=== PATIENT | female | born 1995 | race Caucasian/White ===

== ENCOUNTER 2017-11-18 08:18 | Emergency (ER) ==
[2017-11-18 08:23] VITALS: BP 127/85; TEMP 96.2; BMI 22.3
--- NOTE | 2017-11-18 08:36 | ED.PDOC ---
General ED Provider: Dr. YAQUELIN SCHMIDT Chief Complaint: Tooth Problem Stated Complaint: dental pain Time Seen by Physician: 08:19 (pt seen at ALL TIMES WITH HER NURSE [facility]) Mode of Arrival: Walk-In Information Source: Patient Exam Limitations: No limitations Primary Care Provider: [facility] Nursing and Triage Documentation Reviewed and Agree: Yes Reviewed sepsis parameters & appropriate labs ordered?: Yes System Inflammatory Response Syndrome: Not Applicable Sepsis Protocol: For patient's 13 years and over: Temp is 96.8 and below OR 101 and greater Pulse >90 BPM Resp >20/minute Acutely Altered Mental Status Are patient's symptoms suggestive of a new infection, such as: -Pneumonia -Skin, Soft Tissue -Endocarditis -UTI -Bone, Joint Infection -Implantable Device -Acute Abdominal Infection -Wound Infection -Meningitis -Blood Stream Catheter Infection -Unknown System Inflammatory Response Syndrome: Not Applicable EENT Complaint Exam - Dental/Oral Complaint/Exam Mechanism of Injury: No known trauma Onset/Duration: 1 WEEK Symptoms Are: Still present Timing: Intermittent Initial Severity: Moderate Current Severity: Moderate Character: Reports: Aching, Throbbing Aggravating: Reports: Heat, Cold, Chewing Alleviating: Reports: None Associated Signs and Symptoms: Denies: Swelling, Discharge, Fever, Foul odor, Foul taste in mouth Related History: Reports: Similar episode Cardiac Risk Factors: Reports: None Dental/Oral Surgical History: Reports: None Tooth Findings: Present: Gross caries Cervical Lymphadenopathy Present: No Facial Swelling Present: No Bleeding Present: No Septal Hematoma: No Foreign Body Present: No Dysphagia Present: No Drooling Present: No Asymmetrical Tonsillar Swelling Present: No Uvula Midline: No Raisa-tonsillar Fluctuence: No Trismus Present: No Palatal Petechiae Present: No Scarlatinaform Rash Present: No Teeth Picture: 1 - DECAY Differential Diagnoses: Dental Caries Review of Systems - Review Of Systems Constitutional: Reports: No symptoms Eyes: Reports: No symptoms Ears, Nose, Mouth, Throat: Reports: No symptoms Respiratory: Reports: No symptoms Cardiac: Reports: No symptoms GI: Reports: No symptoms : Reports: No symptoms Musculoskeletal: Reports: No symptoms Skin: Reports: No symptoms Neurological: Reports: No symptoms Endocrine: Reports: No symptoms Hematologic/Lymphatic: Reports: No symptoms All Other Systems: Reviewed and Negative Past Medical History - Past Medical History Previously Healthy: Yes Endocrine: Reports: None Cardiovascular: Reports: None Respiratory: Reports: None Hematological: Reports: None Gastrointestinal: Reports: None Genitourinary: Reports: None Neuro/Psych: Reports: None Musculoskeletal: Reports: None Cancer: Reports: None Last Menstrual Period: NOW Other Pertinent Past Medical History: parotitis 12/21/15 - Surgical History General Surgical History: Reports: Tonsillectomy, Adenoidectomy - Family History Family History: Reports: Unknown - Social History Smoking Status: Current every day smoker, Light tobacco smoker Hx Substance Use: No Alcohol Screening: None - Immunizations Tetanus Shot up to Date: Yes Physical Exam - Physical Exam Appearance: Well-appearing, No pain distress, Well-nourished Eyes: LYUDMILA, EOMI, Conjunctiva clear ENT: Ears normal, Nose normal, Oropharynx normal Respiratory: Airway patent, Breath sounds clear, Breath sounds equal, Respirations nonlabored Cardiovascular: RRR, Pulses normal, No rub, No murmur GI/: Soft, Nontender, No masses, Bowel sounds normal, No Organomegaly Musculoskeletal: Normal strength, ROM intact, No edema, No calf tenderness Skin: Warm, Dry, Normal color Neurological: Sensation intact, Motor intact, Reflexes intact, Cranial nerves intact, Alert, Oriented Psychiatric: Affect appropriate, Mood appropriate Critical Care Note - Critical Care Note Total Time (mins): 0 Course - Course Vital Signs: Temp Pulse Resp BP Pulse Ox 11/18/17 08:19 96.2 F L 100 H 16 127/85 99 Departure - Departure Time of Disposition: 08:35 Disposition: HOME SELF-CARE Discharge Problem: Toothache Instructions: Toothache (ED) Condition: Good Pt referred to PMD for follow-up: Yes IPMP verified?: No Additional Instructions: Please call your Family Physician as soon as possible to schedule a follow-up appointment. Prescriptions: Hydrocodone/Acetaminophen [[place] 5-325 Tablet] 1 each PO Q6HR PRN #12 tablet PRN Reason: PAIN Amoxicillin 500 mg PO Q8HR #21 tablet Allergies/Adverse Reactions: Allergies No Known Allergies Allergy (Verified 11/18/17 08:19) Home Medications: Ambulatory Orders Amoxicillin 500 mg PO Q8HR #21 tablet 11/18/17 Hydrocodone/Acetaminophen [[place] 5-325 Tablet] 1 each PO Q6HR PRN #12 tablet 01/31 Disposition Discussed With: Patient
== END 2017-11-18 08:50 | disposition home or self-care (01) ==
LOC: ED 08:18
DX: K08.89 Other specified disorders of teeth and supporting structures (principal); K02.7 Dental root caries; F17.210 Nicotine dependence, cigarettes, uncomplicated
CPT/HCPCS: 99281

== ENCOUNTER 2019-02-24 22:54 | Emergency (ER) | payer OTHER ==
[2019-02-24 23:05] VITALS: BP 116/87; TEMP 98.5; BMI 20.6
[2019-02-24] MEDS ORDERED: LACTATED RINGERS 1,000 ML IV STA (23:25)
[2019-02-24] MEDS ORDERED: LOMOTIL PO STA (23:29)
[2019-02-24] MEDS ORDERED: ZOFRAN 4 MG/2 ML IVP STA (23:29)
--- NOTE | 2019-02-24 23:32 | ED.PDOC ---
General ED Provider: Dr. FIORELLA KELLY Chief Complaint: Diarrhea Stated Complaint: 3 day history of Nausea and Diarrhea. Has had 22 loose stools today but not blood. Mild cramping also reproted. Time Seen by Physician: 23:30 Mode of Arrival: Walk-In Information Source: Patient Primary Care Provider: PARVIZ LIMON Nursing and Triage Documentation Reviewed and Agree: Yes Does patient meet sepsis criteria?: No System Inflammatory Response Syndrome: Not Applicable Sepsis Protocol: For patient's 13 years and over: Temp is 96.8 and below OR 101 and greater Pulse >90 BPM Resp >20/minute Acutely Altered Mental Status Are patient's symptoms suggestive of a new infection, such as: -Pneumonia -Skin, Soft Tissue -Endocarditis -UTI -Bone, Joint Infection -Implantable Device -Acute Abdominal Infection -Wound Infection -Meningitis -Blood Stream Catheter Infection -Unknown GI Complaint Exam - Vomiting/Diarrhea Complaint/Exam Onset/Duration: 2 days Symptoms Are: Still present Episodes of Diarrhea Over Last 24 Hours: 22 Initial Severity: Moderate Current Severity: Severe Character of Diarrhea: Reports: Watery Aggravating: Reports: Food Alleviating: Reports: None Associated Signs and Symptoms: Reports: Cramping Related History: Denies: Similar episode, Recent antibiotics Last Bowel Movement: just prior to Examination Recent Positive Test: No Use of Oral Contraceptives: No Use of Depoprovera: No Compliant With Contraceptive Use: No Surgical Obstruction Risk Factors: Reports: None Related Surgical History: Reports: None Abdominal Findings: Absent: Abdominal distention, Rebound tenderness, McBurney' s Point tender, CVA Tenderness Kussmaul Respirations Present: No Differential Diagnoses: Viral Gastroenteritis Review of Systems - Review Of Systems Constitutional: Reports: No symptoms Eyes: Reports: No symptoms Ears, Nose, Mouth, Throat: Reports: No symptoms Respiratory: Reports: No symptoms Cardiac: Reports: No symptoms GI: Reports: Diarrhea, Nausea : Reports: No symptoms Musculoskeletal: Reports: No symptoms Skin: Reports: No symptoms Neurological: Reports: Anxiety Endocrine: Reports: No symptoms Hematologic/Lymphatic: Reports: No symptoms All Other Systems: Reviewed and Negative Past Medical History - Past Medical History Previously Healthy: Yes Endocrine: Reports: None Cardiovascular: Reports: None Respiratory: Reports: None Hematological: Reports: None Gastrointestinal: Reports: None Genitourinary: Reports: None Neuro/Psych: Reports: None Musculoskeletal: Reports: None Cancer: Reports: None Last Menstrual Period: 2 WEEKS AGO Other Pertinent Past Medical History: parotitis 12/21/15 - Surgical History General Surgical History: Reports: Tonsillectomy, Adenoidectomy - Family History Family History: Reports: Unknown - Social History Smoking Status: Current every day smoker, Heavy tobacco smoker Hx Substance Use: No Alcohol Screening: None - Immunizations Tetanus Shot up to Date: Yes Physical Exam - Physical Exam Appearance: Ill-appearing, No pain distress Ill-appearing: Moderate Eyes: LYUDMILA, EOMI, Conjunctiva clear ENT: Dry mucosa Neck: Supple Respiratory: Airway patent, Breath sounds clear, Breath sounds equal, Respirations nonlabored Cardiovascular: Tachycardia GI/: Soft, Nontender, Bowel sounds hyperactive Musculoskeletal: Normal strength, ROM intact, No edema, No calf tenderness Skin: Warm, Dry, Normal color Neurological: Alert, Oriented Psychiatric: Anxious Re-Evaluation - Re-Evaluation Time of Re-Evaluation: 00:36 Status: Improved Appearance: NAD Additional Comments: Feels better Drinking Gatorade, no more cramping. Critical Care Note - Critical Care Note Total Time (mins): 0 Course - Course Hematology/Chemistry: 02/24/19 23:50 02/24/19 23:50 Orders, Labs, Meds: Lab Review 02/24/19 02/24/19 02/24/19 23:25 23:50 23:50 WBC 11.11 H RBC 4.42 Hgb 13.5 Hct 40.4 MCV 91.4 MCH 30.5 MCHC 33.4 RDW Coeff of [place]atha 13.0 Plt Count 285 Immature Gran % (Auto) 0.4 Neut % (Auto) 73.3 Lymph % (Auto) 17.5 [place] % (Auto) 6.9 Eos % (Auto) 1.7 Baso % (Auto) 0.2 Immature Gran # (Auto) 0.0 Neut # (Auto) 8.2 H Lymph # (Auto) 1.9 [place] # (Auto) 0.8 Eos # (Auto) 0.2 Baso # (Auto) 0.0 Sodium 135.8 Potassium 3.77 Chloride 103.3 Carbon Dioxide 24.3 Anion Gap 11.97 BUN 11.2 Creatinine 0.75 Estimated GFR (MDRD) 97.00 BUN/Creatinine Ratio 14.93 Glucose 79.7 Calcium 8.78 Total Bilirubin 0.63 AST 15.4 ALT 12.2 Alkaline Phosphatase 51.0 Total Protein 6.60 Albumin 3.70 Globulin 2.90 Albumin/Globulin Ratio 1.27 Amylase 47.3 Lipase 170.6 Serum , Qual Urine Color Yellow Urine Clarity Clear Urine pH 5.5 Ur Specific [place] 1.015 Urine Protein Negative Urine Glucose (UA) Negative Urine Ketones Trace Urine Blood Negative Urine Nitrite Negative Urine Bilirubin Negative Urine Urobilinogen 0.2 Ur Leukocyte Esterase Negative 02/24/19 23:50 WBC RBC Hgb Hct MCV MCH MCHC RDW Coeff of [place] Plt Count Immature Gran % (Auto) Neut % (Auto) Lymph % (Auto) [place] % (Auto) Eos % (Auto) Baso % (Auto) Immature Gran # (Auto) Neut # (Auto) Lymph # (Auto) [place] # (Auto) Eos # (Auto) Baso # (Auto) Sodium Potassium Chloride Carbon Dioxide Anion Gap BUN Creatinine Estimated GFR (MDRD) BUN/Creatinine Ratio Glucose Calcium Total Bilirubin AST ALT Alkaline Phosphatase Total Protein Albumin Globulin Albumin/Globulin Ratio Amylase Lipase Serum , Qual Negative Urine Color Urine Clarity Urine pH Ur Specific [place] Urine Protein Urine Glucose (UA) Urine Ketones Urine Blood Urine Nitrite Urine Bilirubin Urine Urobilinogen Ur Leukocyte Esterase Orders Category Date Time Status ED IV/MEDIPORT/POWERPORT .ONCE EMERGENCY 02/24/19 23:25 Active AMYLASE Stat LAB 02/24/19 23:50 Completed CBC W/ AUTO DIFF Stat LAB 02/24/19 23:50 Completed COMPREHENSIVE METABOLIC PANEL Stat LAB 02/24/19 23:50 Completed HCG QUALITATIVE [SERUM ] Stat LAB 02/24/19 23:50 Completed LIPASE Stat LAB 02/24/19 23:50 Completed URINALYSIS C & S IF INDICATED Stat LAB 02/24/19 23:25 Completed 0.9 % Sodium Chloride [Saline Flush] MEDS 02/24/19 23:25 Discontinued 1 syr IVF PRN PRN Diphenoxylate HCl/Atropine [Lomotil] MEDS 02/24/19 23:29 Discontinued 1 tab PO ONCE STA Ondansetron HCl/Pf [Zofran 4 mg/2 ml] MEDS 02/24/19 23:29 Discontinued 4 mg IVP ONCE STA Ringers Lactated Solution [Lactated Ringers] 1,000 ml MEDS 02/24/19 23:25 Discontinued IV BOLUS Medications Discontinued Medications Generic Name Dose Route Start Last Admin Trade Name Freq PRN Reason Stop Dose Admin Diphenoxylate HCl/Atropine 1 tab 02/24/19 23:29 02/24/19 23:38 Lomotil PO 02/24/19 23:30 1 tab ONCE STA Administration Lactated Ringer's 1,000 mls @ 1,000 mls/hr 02/24/19 23:25 02/24/19 23:44 Lactated Ringers IV 02/25/19 00:24 1,000 mls/hr BOLUS STA Administration Ondansetron HCl 4 mg 02/24/19 23:29 02/24/19 23:46 Zofran 4 Mg/2 Ml IVP 02/24/19 23:30 4 mg ONCE STA Administration Sodium Chloride 1 syr 02/24/19 23:25 02/24/19 23:44 Saline Flush IVF 1 syr PRN PRN Administration To flush IV Vital Signs: Temp Pulse Resp BP Pulse Ox 02/24/19 22:55 98.5 F 111 H 20 116/87 98 Departure - Departure Time of Disposition: 00:36 Disposition: HOME SELF-CARE Discharge Problem: Viral gastroenteritis Instructions: Gastroenteritis (ED) Condition: Good Pt referred to PMD for follow-up: Yes IPMP verified?: No Additional Instructions: Push fluids and Electrolytes Follow up with PCP in 3 days Prescriptions: Diphenoxylate HCl/Atropine [Lomotil 2.5-0.025 mg Tablet] 1 each PO TID PRN #15 tablet PRN Reason: Diarrhea Ondansetron [Zofran Odt] 4 mg PO Q8H #12 tab.rapdis Allergies/Adverse Reactions: Allergies No Known Allergies Allergy (Verified 02/24/19 23:03) Home Medications: Ambulatory Orders Diphenoxylate HCl/Atropine [Lomotil 2.5-0.025 mg Tablet] 1 each PO TID PRN #15 tablet 02/24/19 Ondansetron [Zofran Odt] 4 mg PO Q8H #12 tab.rapdis 02/24/19 Disposition Discussed With: Patient, Family
== END 2019-02-25 00:50 | disposition home or self-care (01) ==
LOC: ED 22:54
DX: A08.4 Viral intestinal infection, unspecified (principal); F17.210 Nicotine dependence, cigarettes, uncomplicated
CPT/HCPCS: 36415; 80053; 81001; 82150; 83690; 84703; 85025; 96361; 96374; 99283

== ENCOUNTER 2020-06-08 15:42 | Inpatient (IN) ==
[2020-06-08] MEDS ORDERED: LACTATED RINGERS 1,000 ML IV STA (16:52)
[2020-06-08] MEDS ORDERED: ZOSYN 3.375 GM 3.375 GM in SODIUM CHLORIDE 50 ML IV STA (16:52)
[2020-06-08] MEDS ORDERED: TYLENOL PO STA (16:56)
--- NOTE | 2020-06-08 17:01 | ED.PDOC ---
General ED Provider: Dr. MAYA BARNEY MD Chief Complaint: Back Pain Stated Complaint: fever, chills, left flank pain since yesterday Time Seen by Physician: 16:47 Mode of Arrival: Walk-In Information Source: Patient Primary Care Provider: PARVIZ LIMON APRN, FNP- Nursing and Triage Documentation Reviewed and Agree: Yes Does patient meet sepsis criteria?: Yes If yes, has appropriate treatment been initiated?: Yes System Inflammatory Response Syndrome: Temp 101F or Greater and Pulse >90 BPM Sepsis Protocol: For patient's 13 years and over: Temp is 96.8 and below OR 101 and greater Pulse >90 BPM Resp >20/minute Acutely Altered Mental Status Are patient's symptoms suggestive of a new infection, such as: -Pneumonia -Skin, Soft Tissue -Endocarditis -UTI -Bone, Joint Infection -Implantable Device -Acute Abdominal Infection -Wound Infection -Meningitis -Blood Stream Catheter Infection -Unknown Complaint Exam UTI Female Complaint/Exam Onset/Duration: left flank pain Symptoms Are: Worse Timing: Constant Initial Severity: Moderate Current Severity: Moderate Location of Pain: Reports Left and Flank Associated Signs and Symptoms: Reports Fever, Chills and Flank pain Related History: Denies Similar episode CVA Tenderness: Yes Suprapubic Tenderness: No Differential Diagnoses: Pyelonephritis and Ureteral Calculus Review of Systems Review Of Systems Constitutional: Reports Chills and Fever Eyes: Reports No symptoms Ears, Nose, Mouth, Throat: Reports No symptoms Respiratory: Reports No symptoms Cardiac: Reports No symptoms GI: Reports No symptoms and Nausea : Reports Flank pain Musculoskeletal: Reports No symptoms Skin: Reports No symptoms; Denies Rash Neurological: Reports No symptoms Endocrine: Reports No symptoms All Other Systems: Reviewed and Negative [facility] Family History (Updated 06/08/20 @ 22:22 by NO TRACEY, RN) Other No known health problems Female Reproductive History Menstrual Hx Hysterectomy: No Hx Tubal Ligation: No Physical Exam Physical Exam Appearance: Reports Ill-appearing Ill-appearing: Moderate Pain Distress: Moderate Eyes: Reports LYUDMILA and EOMI ENT: Reports Ears normal Neck: Supple Respiratory: Reports Airway patent, Breath sounds clear and Breath sounds equal Cardiovascular: Reports RRR and Tachycardia GI/: Reports Soft and Tender (left flank) Musculoskeletal: Reports Normal strength and ROM intact Skin: Reports Warm, Dry and Pale Neurological: Reports Sensation intact, Motor intact, Reflexes intact, Cranial nerves intact, Alert and Oriented Psychiatric: Reports Affect appropriate Critical Care Note Critical Care Note Total Time (mins): 0 Course Course Hematology/Chemistry: 06/08/20 18:30 06/08/20 18:30 Orders, Labs, Meds: Lab Review 06/08/20 06/08/20 06/08/20 16:45 16:45 18:30 WBC 13.62 H RBC 3.95 L Hgb 12.1 Hct 36.6 L MCV 92.7 MCH 30.6 MCHC 33.1 RDW Coeff of [place] 12.1 Plt Count 235 Immature Gran % (Auto) 0.3 Neut % (Auto) 78.7 H Lymph % (Auto) 9.8 L [place] % (Auto) 10.9 H Eos % (Auto) 0.2 Baso % (Auto) 0.1 Neut # (Auto) 10.7 H Lymph # (Auto) 1.3 [place] # (Auto) 1.5 Eos # (Auto) 0.0 Baso # (Auto) 0.0 Immature Gran # (Auto) 0.0 Sodium Potassium Chloride Carbon Dioxide Anion Gap BUN Creatinine Estimated GFR (MDRD) BUN/Creatinine Ratio Glucose Lactic Acid Calcium Total Bilirubin AST ALT Alkaline Phosphatase Total Protein Albumin Globulin Albumin/Globulin Ratio Procalcitonin Urine Color Yellow Urine Clarity Clear Urine pH 6.0 Ur Specific [place] 1.025 Urine Protein 1+ H Urine Glucose (UA) Negative Urine Ketones Trace H Urine Blood 1+ H Urine Nitrite Positive H Urine Bilirubin Negative Urine Urobilinogen 1.0 H Ur Leukocyte Esterase Trace H Urine Microscopic RBC 5-10 Urine Microscopic WBC 30-50 Ur Squamous Epith Cells 2-5 Urine Bacteria 4+ Urine Test Negative 06/08/20 06/08/20 06/08/20 18:30 18:30 18:30 WBC RBC Hgb Hct MCV MCH MCHC RDW Coeff of [place]atha Plt Count Immature Gran % (Auto) Neut % (Auto) Lymph % (Auto) [place] % (Auto) Eos % (Auto) Baso % (Auto) Neut # (Auto) Lymph # (Auto) [place] # (Auto) Eos # (Auto) Baso # (Auto) Immature Gran # (Auto) Sodium 132.7 L Potassium 3.81 Chloride 102.5 Carbon Dioxide 25.3 Anion Gap 8.71 BUN 6.5 L Creatinine 0.53 L Estimated GFR (MDRD) 143.00 BUN/Creatinine Ratio 12.26 Glucose 102.4 Lactic Acid < 0.50 L Calcium 8.85 Total Bilirubin 0.32 AST 77.5 H ALT 66.1 H Alkaline Phosphatase 84.9 Total Protein 6.75 Albumin 3.31 L Globulin 3.44 Albumin/Globulin Ratio 0.96 Procalcitonin 0.07 Urine Color Urine Clarity Urine pH Ur Specific [place] Urine Protein Urine Glucose (UA) Urine Ketones Urine Blood Urine Nitrite Urine Bilirubin Urine Urobilinogen Ur Leukocyte Esterase Urine Microscopic RBC Urine Microscopic WBC Ur Squamous Epith Cells Urine Bacteria Urine Test Orders Category Date Time Status ACTIVITY .BR with BRP CARE 06/08/20 19:36 Active INTAKE & OUTPUT Q8HR CARE 06/08/20 19:36 Active VITAL SIGNS Q4HR CARE 06/08/20 19:37 Active REGULAR DIET DIETARY 06/08/20 Dinner Ordered ED BLACK OXIDE COATING EQUIPMENT TENDER APPLIED .ONCE EMERGENCY 06/08/20 16:52 Active ED VITAL SIGNS NOW EMERGENCY 06/08/20 18:14 Completed ED VITAL SIGNS Q1HR EMERGENCY 06/08/20 16:52 Completed CBC W/ AUTO DIFF DAILY@0600 LAB 06/09/20 06:00 Ordered CBC W/ AUTO DIFF DAILY@0600 LAB 06/10/20 06:00 Ordered CBC W/ AUTO DIFF Stat LAB 06/08/20 18:30 Completed COMPREHENSIVE METABOLIC PANEL Stat LAB 06/08/20 18:30 Completed LACTIC ACID Stat LAB 06/08/20 18:30 Completed PROCALCITONIN Stat LAB 06/08/20 18:30 Completed URINALYSIS C & S IF INDICATED Stat LAB 06/08/20 16:45 Completed URINE CULTURE Stat LAB 06/08/20 16:45 Received URINE Stat LAB 06/08/20 16:45 Completed Acetaminophen [Tylenol] MEDS 06/08/20 16:56 Discontinued 1,000 mg PO ONCE STA Acetaminophen [Tylenol] MEDS 06/08/20 19:36 Active 650 mg PO Q4H PRN Lidocaine/Prilocaine [Emla Cream] MEDS 06/08/20 20:17 Discontinued 1 applic TP .STK-MED ONE Lidocaine/Prilocaine [Emla Cream] MEDS 06/08/20 17:07 Discontinued 1 applic TP ONCE STA Piperacillin Sodium/Tazobactam [Zosyn 3.375 gm] 3.375 MEDS 06/08/20 16:52 Discontinued gm 0.9 % Sodium Chloride [Sodium Chloride] 50 ml IV ONCE Piperacillin Sodium/Tazobactam [Zosyn 3.375 gm] 3.375 MEDS 06/08/20 20:00 Discontinued gm 0.9 % Sodium Chloride [Sodium Chloride] 50 ml IV Q6H Piperacillin Sodium/Tazobactam [Zosyn 3.375 gm] 3.375 MEDS 06/09/20 00:00 Active gm 0.9 % Sodium Chloride [Sodium Chloride] 50 ml IV Q6HR Sodium Chloride 0.9% [Sodium Chloride] 1,000 ml MEDS 06/08/20 18:09 Discontinued IV BOLUS RESUSCITATION STATUS Routine OTHERS 06/08/20 19:36 Ordered CHEST, 2 VIEWS PA & LAT Stat RADS 06/08/20 16:[address] ABD/PEL WO RENAL STONE PROT Stat RADS 06/08/20 16:52 Completed Medications Generic Name Dose Route Start Last Admin Trade Name Freq PRN Reason Stop Dose Admin Acetaminophen 650 mg 06/08/20 19:36 06/09/20 05:25 Acetaminophen 325 Mg Tablet PO 650 mg Q4H PRN Administration Fever >101 Piperacillin Sod/Tazobactam 50 mls @ 50 mls/hr 06/09/20 00:00 06/09/20 04:59 Sod 3.375 gm/ Sodium Chloride IV 06/12/20 00:00 50 mls/hr Q6HR ELIANA Administration Sodium Chloride 1,000 mls @ 30 mls/hr 06/08/20 23:00 06/08/20 22:59 Sodium Chloride IV 30 mls/hr .[id number] ELIANA Administration Sodium Chloride 1 syr 06/08/20 22:39 0.9% Sodium Chloride 10 Ml Disp.Syrin IVF PRN PRN FLUSHING Discontinued Medications Generic Name Dose Route Start Last Admin Trade Name Freq PRN Reason Stop Dose Admin Acetaminophen 1,000 mg 06/08/20 16:56 06/08/20 17:03 Acetaminophen 500 Mg Tablet PO 06/08/20 16:57 1,000 mg ONCE STA Administration Piperacillin Sod/Tazobactam 50 mls @ 50 mls/hr 06/08/20 16:52 06/08/20 18:20 Sod 3.375 gm/ Sodium Chloride IV 06/08/20 17:51 50 mls/hr ONCE STA Administration Sodium Chloride 1,000 mls @ 1,000 mls/hr 06/08/20 18:09 06/08/20 19:35 Sodium Chloride IV 06/08/20 19:08 1,000 mls/hr BOLUS STA Administration Piperacillin Sod/Tazobactam 50 mls @ 50 mls/hr 06/08/20 20:00 Sod 3.375 gm/ Sodium Chloride IV 06/11/20 19:59 Q6H ELIANA Lidocaine HCl 5 ml 06/08/20 21:55 06/08/20 22:00 Lidocaine Hcl/Pf 1% 5 Ml Vial SUBCUT 06/08/20 21:56 Not Given ONCE STA Lidocaine/Prilocaine 1 applic 06/08/20 17:07 Lidocaine/Prilocaine 5 Gm Tube/Occ Dressing TP 06/08/20 17:08 ONCE STA Vital Signs: Temp Pulse Resp BP Pulse Ox 06/08/20 20:50 99.0 F 99 H 20 119/82 99 06/08/20 18:51 97.9 F 06/08/20 15:42 101.9 F H 122 H 16 125/79 95 Discharge Plan Discharge Patient Disposition: ADMITTED INPATIENT Discharge Problem: Acute pyelonephritis ED Provider: MAYA BARNEY Condition: Stable
[2020-06-08] MEDS ORDERED: EMLA CREAM TP STA (17:07)
[2020-06-08 17:15] LABS: BILIRUBIN,URINE Negative (NEGATIVE); CLARITY,URINE Clear (CLEAR); COLOR,URINE Yellow (YELLOW); GLUCOSE, URINE (UA) Negative (NEGATIVE); KETONES,URINE Trace (NEGATIVE); LEUKOCYTE ESTERASE ,URINE Trace (NEGATIVE); NITRITE,URINE Positive (NEGATIVE); URINE, BLOOD 1+ (NEGATIVE)
[2020-06-08 17:18] LABS: BACTERIA,URINE 4+ (NOT PRESENT); URINE WBC, MICROSCOPIC 30-50 (0-2)
[2020-06-08 17:19] LABS: URINE PREGNANCY TEST NEGATIVE (NEGATIVE)
--- NOTE | 2020-06-08 18:08 | DI ---
EXAM: PA and lateral views of the chest. HISTORY: Fever. FINDINGS: The bones are unremarkable. The cardiac silhouette and pulmonary vasculature are within n ormal limits. The costophrenic angles are clear. No infiltrate or consolidation. Impression: No acute cardiopulmonary disease.
[2020-06-08] MEDS ORDERED: SODIUM CHLORIDE 1,000 ML IV STA (18:09)
--- NOTE | 2020-06-08 18:12 | CT ---
EXAM: CT abdomen and pelvis without contrast HISTORY: Abdominal pain, left flank pain TECHNIQUE: Multi-slice transaxial helical with coronal and sagittal reformed images COMPARISON: CT abdomen/pelvis from 02/15/2016 FINDINGS: The lung bases are free of acute airspace or interstitial opacities. The heart size is nor mal. There are no pericardial or pleural effusions. The hepatic attenuation is normal relative to the spleen. The gallbladder is present without biliary dilatation. The pancreas and adrenal glands are normal. The spleen has normal size and attenuation . The kidneys have normal size and attenuation. There is suggestion of questionable left perinephric e margareth. No nephrolithiasis, ureterolithiasis, or ureteral pelvicaliectasis appreciated. The nonopacif ied bladder is normal. The uterus and adnexa are grossly normal. Trace free pelvic fluid is noted. The appendix is surgically absent. The intestines have normal caliber. No lymphadenopathy. The ao rta has normal caliber. The bones are free of suspicious osteolytic or osteoblastic lesions. IMPRESSION: 1. Questionable left perinephric edema can be seen in the setting of pyelonephritis. Recommend whitney elation with white blood cell count and urinalysis. 2. No nephrolithiasis, urolithiasis, or ureteral pelvicaliectasis. 3. Trace free pelvic fluid.
[2020-06-08 18:47] LABS: BASOPHILS % (AUTO) 0.1 % (0.0-3.0); EOSINOPHILS % (AUTO) 0.2 % (0.0-7.0); HEMATOCRIT 36.6 % (37.0-47.0); HEMOGLOBIN 12.1 g/dl (12.0-16.0); IMMATURE GRANULOCYTE % (AUTO) 0.3 % (0.0-5.0); LYMPHOCYTES # (AUTO) 1.3 K/uL (0.60-3.4); LYMPHOCYTES % (AUTO) 9.8 (10.0-50.0); MEAN CORPUSCULAR HGB CONC 33.1 (31.8-35.4); MEAN CORPUSCULAR VOLUME 92.7 fl (81.0-99.0); MONOCYTES # (AUTO) 1.5 K/uL (0.4-2.0); MONOCYTES % (AUTO) 10.9 (0-10); NEUTROPHILS # (AUTO) 10.7 K/ul (2.0-6.9); NEUTROPHILS % (AUTO) 78.7 % (42.2-75.2); PLATELET COUNT 235 10^3/uL (140-440); RDW COEFFICIENT OF VARIATION 12.1 % (11.6-14.8); RED BLOOD COUNT 3.95 10^6/ul (4.20-5.40); WHITE BLOOD COUNT 13.62 K/ul (4.6-10.2)
[2020-06-08 18:55] LABS: ALANINE AMINOTRANSFERASE 66.1 U/L (0-35); ALBUMIN 3.31 g/dL (3.5-5.0); ALKALINE PHOSPHATASE 84.9 U/L (38-126); ASPARTATE AMINO TRANSFERASE 77.5 U/L (14-36); BILIRUBIN,TOTAL 0.32 mg/dL (0.2-1.3); BLOOD UREA NITROGEN 6.5 mg/dL (7-17); CALCIUM 8.85 mg/dL (8.4-10.2); CARBON DIOXIDE 25.3 mmol/L (22-30.0); CHLORIDE 102.5 mmol/L (98-107); CREATININE 0.53 mg/dL (0.60-1.30); GLUCOSE 102.4 mg/dL (74-106); SODIUM 132.7 mmol/L (134.5-145); TOTAL PROTEIN 6.75 g/dL (6.3-8.2)
[2020-06-08] MEDS ORDERED: ZOSYN 3.375 GM 3.375 GM in SODIUM CHLORIDE 50 ML IV SCH (20:00)
[2020-06-08] MEDS: EMLA CREAM TP ONE (20:20)
[2020-06-08] MEDS ORDERED: LIDOCAINE HCL 1% SDV ONE (21:54)
[2020-06-08] MEDS ORDERED: LIDOCAINE HCL 1% SDV SUBCUT STA (21:55)
[2020-06-08 22:31] VITALS: BMI 24.7
[2020-06-08] MEDS: ZOSYN 3.375 GM 3.375 GM in SODIUM CHLORIDE 50 ML IV SCH (22:59)
[2020-06-08] MEDS: SODIUM CHLORIDE 1,000 ML IV SCH (22:59)
[2020-06-09] MEDS: ZOSYN 3.375 GM 3.375 GM in SODIUM CHLORIDE 50 ML IV SCH ×4 (04:59→23:17)
[2020-06-09] MEDS: TYLENOL PO PRN ×3 (05:25→23:17)
--- NOTE | 2020-06-09 07:39 | PCM ---
Chief Complaint Chief Complaint: Flank pain, fever, chills 24 hours History of Present Illness History of Present Illness: 25 yo CF patient of CHING Landers presented to ED 06/08/20 at [address] Guzman. CC reviewed and noted fever, chills, left flank pain since day prior. Patient met sepsis criteria in ED, SIRS criteria met. Vitals on arrival at 1542 showed temp 101.9, HR 122, RR 16, BP 125/79 and pulse ox 95. She had left flank pain, worsening with time, pain was constant, of moderate severity, no radition, reported fever, chills, flank pain as in Chief complaint. No history of similar episode previously, noted CVA tenderness, suprapubic tenderness. DDX considered through ED included pyelonephritis, ascending UTI, ureteral calculus. ROS reviewed and similar to HPI. Exam reviewed ill appearing, moderate pain distress, tenderness left flank , otherwise WNL. Labs showed WBC 13.62, hgb 12.1, HCT 36.6, plt 235. Sodium mildly decreased at 132.7 on CMP. K+ normal at 3.81. CL 102.5 normal, CO2 25.3 BUN 6.5, Cr 0.53, glucose 102.4. Differential showed 79.7 Neutrophils, 10.9% monocytes. Neut # 10.7 elevated. Urine showed yellow color , pH 6.0, SG 1.025, 1+ prot and blood, nitrite positive, Trace LE, RBC 5-10, WBC 30-50, squams 2-5, bacteria 4+. test negative. Lactic acid was negative, procalcitonin negative, decreasing likelihood of septis/septic shock risks. Albumin mildly low at 3.31, AST mildly elevated 77.5, alt mildly elevated 66.1. Urine was sent for culture, no allergies to foods/medications, She was given tylenol, zosyn started while patient was in ED 3.375gram q 6 hours. Chest Xray completd showed no acute disease/process. CT scan of abdomen and pelvis showed Questionable left perinephric edema can be seen in the setting of pyelonephritis. Recommend correlation with white blood cell count and urinalysis. No nephrolithiasis, urolithiasis, or ureteral pelvicaliectasis. Trace free pelvic fluid. She was admitted to room 111 initially under ED but transfered to my care as inpatient due to acute pyelonephirits. This am she was seen by at 7:30 am. Vitals this am 117/72, Pulse 112, RR 16, temp 98.6, O2 98% on RA. Checked on patient in room 111 this am. She noted LMP 2 weeks ago. female, sexually active, no vaginal discharge, no pelvic pain, no dyspareunia. She feels a little better this am. She notes she refused labs this am as they stuck her 8 times. I talked to her about her pain, no history of similar pain. Rates it at 02/23. She is tolerating the zosyn well q 6 hours IV. Discussed when culture returns we could change to PO. Plan would be d/c in am/pm tomorrow vs 06/11. She likes this plan. Diet ordered. She reports decreased PO appetite. Vitals 0738 reviewed with her. Labs/imaging from ED reviewed with her. Case d/w DR. Guzman from ED this am, discussed case with [facility] nurse. REVIEW OF SYMPTOMS: (Positives bolded) General: weight loss, fever, chills, night sweats, fatigue, appetite loss HEENT: blurry vision, eye pain, eye discharge, dry eyes, decreased vision, sore throat tinnitus, bloody nose, hearin gloss, sinus pain/pressure, ear pain/pressure. Respiratory: shortness of breath, cough, hemoptysis, wheezing, pleurisy, Cardiovascular: chest pain, PND, palpitation, edema, orthopnea, syncope, swelling of extremities Gastro: Nausea, vomiting, diarrhea, hematemesis, abdominal pain, constipation Genito: hematuria, dysuria, glycosuria, hesitancy, frequency, incontinence, FLANK PAIN [place]: Arthralgia, myalgia, muscle weakness, joint swelling, NSAID use, BACK PAIN Skin: rash, pruritis, sores, nail changes, skin thickening, change in wart/mole, itching, rash, new lesions, pruritus, nail changes Neuro: Migraine, numbness, ataxia, tremor, vertigo, weakness, memory loss, Irritability, dizziness Endocrine: excessive thirst, polyuria, cold intolerance, heat intolerance, goiter Psychiatric: depression, anxiety, anti-depressants, alcohol abuse, drug abuse, insomnia, change in sleep pattern and mood changes Heme/lymph: easy bruising, bleeding gums, blood clots, swollen glands, lymphedema, Allergic/immune: allergic rhinitis, hay fever, asthma, hives Vital Signs - 24 hr 06/08/20 15:42 06/08/20 18:51 06/08/20 20:50 Temperature 101.9 F H 97.9 F 99.0 F Pulse Rate 122 H 99 H Pulse Rate [Apical] Respiratory Rate 16 20 Blood Pressure 125/79 119/82 O2 Sat by Pulse Oximetry 95 99 06/08/20 21:20 06/08/20 22:23 06/09/20 05:22 Temperature 97.5 F L 98.6 F Pulse Rate 110 H 112 H Pulse Rate [Apical] 110 H Respiratory Rate 18 18 16 Blood Pressure 117/72 O2 Sat by Pulse Oximetry 99 98 06/09/20 07:38 Temperature 98.6 F Pulse Rate 112 H Pulse Rate [Apical] Respiratory Rate 16 Blood Pressure 117/72 O2 Sat by Pulse Oximetry 98 Constitutional: Appearance-Mild pain response. Awake upon entry into room 111. Consistent with stated age. Orientation- Oriented x 3, alert Build and Nutrition-[normal female] General- Patient is pleasant and cooperative with the interview and exam. Integumentary: General-No rashes, ulcers or lesions. Palpation- Normal skin moisture/turgor. Skin is warm to touch, appropriate. Capillary refill is normal bilateral Upper and lower extremity. Head/Neck: Head- normocephalic and atraumatic. Neck- without visible/palpable lumps or pulsations. Palpation- No bony tenderness about head/neck along frontal, occipital, temporal, parietal, mastoid, jawline, zygoma, orbit or any other location. NO temporal artery tenderness. No TMJ tenderness. Neck Supple. Thyroid-No thyromegaly, no nodules Eye: Bilaterally PERRLA, EOMI. No discharge. Upper and lower eyelids are normal. Sclera/conjunctiva normal without discharge. Cornea is normal and clear. Lens is normal. Eyeball appears normal. No ciliary flushing, no conjunctival injection. ENMT: Pinna- normal without tenderness or erythema. External auditory canal Left- normal without erythema or discharge, no excessive cerumen. External auditory canal Right-normal without erythema or discharge, no excessive cerumen. TM left- Ochoa/pearly, normal light reflex and anatomy TM Right- Ochoa/pearly, normal light reflex and anatomy Hearing Assessment-normal to conversational speech. Nose and sinus- No sinus tenderness along frontal/maxillary region. External appearance normal and midline. Nares- bilateral quiet airflow, no discharge. Nasal mucosa- No bleeding noted and no ulcerations observed. [place], moist. Turbinates non boggy. Lips- normal color, moist without cracks/lesions Oral Cavity/Palate- hard/soft palate intact without lesions, oral mucosa pink and moist. discussed appropriate oral care. Tongue normal midline. Oropharynx- no pharyngeal erythema, Uvula midline. No post nasal drip. No exudate. Salivary glands- Non tender to palpation CHEST/LUNG: Inspection- symmetric chest wall no pectus deformity. Normal effort, no distress, no use of accessory muscles. Palpation- nontender sternum, ribline. No abnormal pulsations. Auscultation- Breath sounds normal throughout all lung henderson. Normal tracheal sounds, Normal bronchial sounds overlying sternum, Bronchovessicular sounds normal between scapulae posteriorly, Normal vessicular breath sounds heard throughout periphery. Lungs are clear today. Adventitious sounds- No wheezes, rales, rhonchi. CARDIOVASCULAR: Carotid artery- normal, no bruits or abnormal pulsations. Jugular vein- no pulsations. Palpation/Percussion- Normal PMI, no palpable thrill Auscultation- Regular rate and rhythm. No murmur noted in sitting, supine positions. Extremities- no digital clubbing, cyanosis, edema, increased warmth. ABDOMEN: Inspection- normal and no visible pulsations. Normal contour. Auscultation- Bowel sounds normal, no abdominal bruits. Palpation/Percussion- soft, non-tender, no rebound tenderness, no rigidity (guarding), no jar tenderness, no masses. Liver-no hepatomegaly, Spleen no splenomegaly, Hernias- none. Rectal not examined. : Suprapubic tenderness mildly. She has CVA + on left, Back pain: No spinous process tenderness along C/T/L spine. Paraspinal tenderness present bilaterally along thoracic and lumbar region. Hip flexion 5/5 bilat, knee extension 5/5 bilat, knee flexion 5/5 bilat. Ankle dorsiflexion and plantar flexion 5/5 bilaterally. Hallux strength normal symmetrical, no atrophy. No ankle clonus. Normal reflexes, symmetrical. no foot drop. Normal sensation to light touch bilaterally. {Pelvic deferred as no c/o pelvic pain, dyspareunia, vaginal discharge, abnl vaginal bleeding. No reported history of STD) Peripheral Vascular: Upper extremity Left- Normal temperature with pink nailbeds and no ulcerations. Upper extremity Right- Normal temperature with pink nailbeds and no ulcerations. Lower extremity- Normal temperature with pink nailbeds and no ulcerations. DP pulses 2+ bilaterally. Pedal hair intact. Normal capillary refill. Edema- No edema. Musculoskeletal: Generalized-No generalized swelling or edema of extremities, no digital clubbing or cyanosis, neurovascularly intact all four extremities. Upper extremity- Symmetrical posture. No visible deformity. Normal sensation along medial and lateral upper extremity proximally and distally. NO tenderness overlying shoulder, lateral/medial epicondyle. Share[employer] Specialist 5/5 and strength 5/5 bilateral UE. Elbow palpated, no tenderness overlying olecranon. Normal supination, pronation to active/passive ROM and to resisted rotation. Bicep insertion/tricep insertion appear normal without obvious pathology. Rotator cuff evaluated and intact. Normal wrist ROM bilaterally. Normal hand movement, intrinsic muscles of hands normal. No tenderness to palpation of hands/wrists/elbows. Lower extremity- Hip: Not tender to palpation, no pain, no swelling, edema or erythema of surrounding tissue, normal strength and tone. Normal appearing hip ROM bilaterally without pain. Knee: Knee ROM normal. No tenderness overlying trochanters, no tenderness about patella, quad tendon, patellar tendon. No tenderness at tibial tuberosity. Ankle: normal ROM not tender to palpation along medial/lateral malleolus. Foot: Normal movement of toes, no tenderness bilateral feet/toes. Normal foot type. Spine/Ribs- No deformities, masses or tenderness, no known fractures, normal strength, Normal ROM. Normal stability No tenderness along C/T/L spine. Normal appearing ROM about spine. Neurological: General- Moves all 4 extremities symmetrically. Symmetrical face and body posture. Cranial nerves- individually evaluated II-XII and intact. PERRLA, Normal EOMI, visual/special senses appear intact, Face is symmetrical and normal sensation/movement, normal tongue, normal strength/posture of neck musculature. Reflexes- intact with DTR 2+ patellar, Achilles, bicep, brachial, tricep. Ankle clonus normal with 2 beats. Strength- 5/5 bilateral UE and LE. Soft touch- intact bilateral UE and LE. Temperature sensation- intact bilateral UE and LE. Neuropsych: Oriented- Person, place, time. (AAOx3), Mood/affect- normal and congruent. Able to articulate well. Speech-Normal speech, normal rate, normal tone, normal use of language, volume and coherence. Thought content- normal with ability to perform basic computations and apply abstract thought/reason. Associations- intact, no SI/HI, no hallucinations, delusions, obsessions. Judgment/insight- Appropriate. Memory-Recall intact, remote and recent memory intact. Knowledge- Age appropriate fund of knowledge, concentration and attention span normal. Lymphatic: Head/Neck- normal size and non tender to palpation. Axillary- normal size and non tender to palpation. Femoral and Inguinal- normal size and non tender to palpation. Allergies Allergies Allergy/AdvReac Type Severity Reaction Status Date / Time No Known Allergies Allergy Verified 06/08/20 15:48 PFSH Surgical History Status post appendectomy Status post tonsillectomy Status post tonsillectomy and adenoidectomy Family History Other No known health problems Social History (Updated 06/09/20 @ 08:29 by GIANNA SHERMAN MD) Smoking and tobacco status: Current every day smoker Tobacco: How many years used: 3 Quit status: not considering quitting Alcohol intake: unknown Substance use type: does not use Number of children: 1 Highest education level completed: high school graduate service: No [facility]: No Sexually active: Yes Do you think of yourself as: straight/heterosexual Current gender identity: female Seatbelt use: always Medications Medications: Medications Generic Name Dose Route Start Last Admin Trade Name Freq PRN Reason Stop Dose Admin Acetaminophen 650 mg 06/08/20 19:36 06/09/20 05:25 Acetaminophen 325 Mg Tablet PO 650 mg Q4H PRN Administration Fever >101 Piperacillin Sod/Tazobactam 50 mls @ 50 mls/hr 06/09/20 00:00 06/09/20 04:59 Sod 3.375 gm/ Sodium Chloride IV 06/12/20 00:00 50 mls/hr Q6HR ELIANA Administration Sodium Chloride 1,000 mls @ 30 mls/hr 06/08/20 23:00 06/08/20 22:59 Sodium Chloride IV 30 mls/hr .[id number] ELIANA Administration Sodium Chloride 1 syr 06/08/20 22:39 0.9% Sodium Chloride 10 Ml Disp.Syrin IVF PRN PRN FLUSHING Body Composition Height: 5 ft 4 in Weight: 144 lb 6.444 oz Body Mass Index (BMI): 24.7 Vital Signs Temperature: 98.6 F Pulse Rate: 112 Respiratory Rate: 16 Blood Pressure: 117/72 O2 Sat by Pulse Oximetry: 98 Physical Examination Neurological: Reports Unresponsive Lab/Tests/Diagnostic Imaging Lab/Tests/Diagnostic Imaging: Lab Review 06/08/20 06/08/20 06/08/20 16:45 16:45 18:30 WBC 13.62 H RBC 3.95 L Hgb 12.1 Hct 36.6 L MCV 92.7 MCH 30.6 MCHC 33.1 RDW Coeff of [place] 12.1 Plt Count 235 Immature Gran % (Auto) 0.3 Neut % (Auto) 78.7 H Lymph % (Auto) 9.8 L [place] % (Auto) 10.9 H Eos % (Auto) 0.2 Baso % (Auto) 0.1 Neut # (Auto) 10.7 H Lymph # (Auto) 1.3 [place] # (Auto) 1.5 Eos # (Auto) 0.0 Baso # (Auto) 0.0 Immature Gran # (Auto) 0.0 Sodium Potassium Chloride Carbon Dioxide Anion Gap BUN Creatinine Estimated GFR (MDRD) BUN/Creatinine Ratio Glucose Lactic Acid Calcium Total Bilirubin AST ALT Alkaline Phosphatase Total Protein Albumin Globulin Albumin/Globulin Ratio Procalcitonin Urine Color Yellow Urine Clarity Clear Urine pH 6.0 Ur Specific [place] 1.025 Urine Protein 1+ H Urine Glucose (UA) Negative Urine Ketones Trace H Urine Blood 1+ H Urine Nitrite Positive H Urine Bilirubin Negative Urine Urobilinogen 1.0 H Ur Leukocyte Esterase Trace H Urine Microscopic RBC 5-10 Urine Microscopic WBC 30-50 Ur Squamous Epith Cells 2-5 Urine Bacteria 4+ Urine Test Negative 06/08/20 06/08/20 06/08/20 18:30 18:30 18:30 WBC RBC Hgb Hct MCV MCH MCHC RDW Coeff of [place] Plt Count Immature Gran % (Auto) Neut % (Auto) Lymph % (Auto) [place] % (Auto) Eos % (Auto) Baso % (Auto) Neut # (Auto) Lymph # (Auto) [place] # (Auto) Eos # (Auto) Baso # (Auto) Immature Gran # (Auto) Sodium 132.7 L Potassium 3.81 Chloride 102.5 Carbon Dioxide 25.3 Anion Gap 8.71 BUN 6.5 L Creatinine 0.53 L Estimated GFR (MDRD) 143.00 BUN/Creatinine Ratio 12.26 Glucose 102.4 Lactic Acid < 0.50 L Calcium 8.85 Total Bilirubin 0.32 AST 77.5 H ALT 66.1 H Alkaline Phosphatase 84.9 Total Protein 6.75 Albumin 3.31 L Globulin 3.44 Albumin/Globulin Ratio 0.96 Procalcitonin 0.07 Urine Color Urine Clarity Urine pH Ur Specific [place] Urine Protein Urine Glucose (UA) Urine Ketones Urine Blood Urine Nitrite Urine Bilirubin Urine Urobilinogen Ur Leukocyte Esterase Urine Microscopic RBC Urine Microscopic WBC Ur Squamous Epith Cells Urine Bacteria Urine Test Orders Category Date Time Status [facility] 06/08/20 21:02 Active BED) ACTIVITY .BR with [facility] CARE 06/08/20 19:36 Active INTAKE & OUTPUT Q8HR CARE 06/08/20 19:36 Active VITAL SIGNS Q4HR CARE 06/08/20 19:37 Active REGULAR DIET DIETARY 06/08/20 Dinner Ordered ED MEDICAL OFFICE MANAGER APPLIED .ONCE EMERGENCY 06/08/20 16:52 Active ED VITAL SIGNS NOW EMERGENCY 06/08/20 18:14 Completed ED VITAL SIGNS Q1HR EMERGENCY 06/08/20 16:52 Completed CBC W/ AUTO DIFF DAILY@0600 LAB 06/10/20 06:00 Ordered CBC W/ AUTO DIFF Stat LAB 06/08/20 18:30 Completed COMPREHENSIVE METABOLIC PANEL Stat LAB 06/08/20 18:30 Completed LACTIC ACID Stat LAB 06/08/20 18:30 Completed PROCALCITONIN Stat LAB 06/08/20 18:30 Completed URINALYSIS C & S IF INDICATED Stat LAB 06/08/20 16:45 Completed URINE CULTURE Stat LAB 06/08/20 16:45 Received URINE Stat LAB 06/08/20 16:45 Completed 0.9 % Sodium Chloride [Saline Flush] MEDS 06/08/20 22:39 Active 1 syr IVF PRN PRN Acetaminophen [Tylenol] MEDS 06/08/20 16:56 Discontinued 1,000 mg PO ONCE STA Acetaminophen [Tylenol] MEDS 06/08/20 19:36 Active 650 mg PO Q4H PRN Lidocaine HCl/Pf [Lidocaine HCl 1% Sdv] MEDS 06/08/20 21:54 Discontinued 5 ml .ROUTE .STK-MED ONE Lidocaine HCl/Pf [Lidocaine HCl 1% Sdv] MEDS 06/08/20 21:55 Discontinued 5 ml SUBCUT ONCE STA Lidocaine/Prilocaine [Emla Cream] MEDS 06/08/20 20:17 Discontinued 1 applic TP .STK-MED ONE Lidocaine/Prilocaine [Emla Cream] MEDS 06/08/20 17:07 Discontinued 1 applic TP ONCE STA Piperacillin Sodium/Tazobactam [Zosyn 3.375 gm] 3.375 MEDS 06/08/20 16:52 Discontinued gm 0.9 % Sodium Chloride [Sodium Chloride] 50 ml IV ONCE Piperacillin Sodium/Tazobactam [Zosyn 3.375 gm] 3.375 MEDS 06/08/20 20:00 Discontinued gm 0.9 % Sodium Chloride [Sodium Chloride] 50 ml IV Q6H Piperacillin Sodium/Tazobactam [Zosyn 3.375 gm] 3.375 MEDS 06/09/20 00:00 Active gm 0.9 % Sodium Chloride [Sodium Chloride] 50 ml IV Q6HR Sodium Chloride 0.9% [Sodium Chloride] 1,000 ml MEDS 06/08/20 23:00 Active IV 30 mls/hr Sodium Chloride 0.9% [Sodium Chloride] 1,000 ml MEDS 06/08/20 18:09 Discontinued IV BOLUS RESUSCITATION STATUS Routine OTHERS 06/08/20 19:36 Ordered CHEST, 2 VIEWS PA & LAT Stat RADS 06/08/20 16:[address] ABD/PEL WO RENAL STONE PROT Stat RADS 06/08/20 16:52 Completed Medications Generic Name Dose Route Start Last Admin Trade Name Freq PRN Reason Stop Dose Admin Acetaminophen 650 mg 06/08/20 19:36 06/09/20 05:25 Acetaminophen 325 Mg Tablet PO 650 mg Q4H PRN Administration Fever >101 Piperacillin Sod/Tazobactam 50 mls @ 50 mls/hr 06/09/20 00:00 06/09/20 04:59 Sod 3.375 gm/ Sodium Chloride IV 06/12/20 00:00 50 mls/hr Q6HR ELIANA Administration Sodium Chloride 1,000 mls @ 30 mls/hr 06/08/20 23:00 06/08/20 22:59 Sodium Chloride IV 30 mls/hr .[id number] ELIANA Administration Sodium Chloride 1 syr 06/08/20 22:39 0.9% Sodium Chloride 10 Ml Disp.Syrin IVF PRN PRN FLUSHING Discontinued Medications Generic Name Dose Route Start Last Admin Trade Name Freq PRN Reason Stop Dose Admin Acetaminophen 1,000 mg 06/08/20 16:56 06/08/20 17:03 Acetaminophen 500 Mg Tablet PO 06/08/20 16:57 1,000 mg ONCE STA Administration Piperacillin Sod/Tazobactam 50 mls @ 50 mls/hr 06/08/20 16:52 06/08/20 18:20 Sod 3.375 gm/ Sodium Chloride IV 06/08/20 17:51 50 mls/hr ONCE STA Administration Sodium Chloride 1,000 mls @ 1,000 mls/hr 06/08/20 18:09 06/08/20 19:35 Sodium Chloride IV 06/08/20 19:08 1,000 mls/hr BOLUS STA Administration Piperacillin Sod/Tazobactam 50 mls @ 50 mls/hr 06/08/20 20:00 Sod 3.375 gm/ Sodium Chloride IV 06/11/20 19:59 Q6H ELIANA Lidocaine HCl 5 ml 06/08/20 21:55 06/08/20 22:00 Lidocaine Hcl/Pf 1% 5 Ml Vial SUBCUT 06/08/20 21:56 Not Given ONCE STA Lidocaine/Prilocaine 1 applic 06/08/20 17:07 Lidocaine/Prilocaine 5 Gm Tube/Occ Dressing TP 06/08/20 17:[address]: CT scan of abdomen and pelvis showed Questionable left perinephric edema can be seen in the setting of pyelonephritis. Recommend correlation with white blood cell count and urinalysis. No nephrolithiasis, urolithiasis, or ureteral pelvicaliectasis. Trace free pelvic fluid. CXR negative. Urine culture pending. Assessment (1) Acute pyelonephritis: Status: Acute Code(s): N10 - Acute pyelonephritis SNOMED Code(s): 62206437 (2) SIRS (systemic inflammatory response syndrome): Status: Acute Code(s): R65.10 - Systemic inflammatory response syndrome (SIRS) of non-infectious origin without acute organ dysfunction SNOMED Code(s): 333339362 (3) Tachycardia: Status: Acute Code(s): R00.0 - Tachycardia, unspecified SNOMED Code(s): 9936100 (4) Leukocytosis: Status: Acute Code(s): D72.829 - Elevated white blood cell count, unspecified SNOMED Code(s): 043371659 Plan Plan: Pyelonephritis: 25 yr old CF with 24 hours of decreased pO intake, back pain, flank pain, without vaginal discharge, LMP 2 weeks ago, sexually active, w/o s/sx of STD/PID. She denied frequency/hesitancy/burning. Ddx included pyelonephritis, nephrolithiasis, ascending UTI, lumbago/back strain. CT supports pyelo, SIRS criteria have been met, procalc and lactic acid were negative. She is already starting to improve today with antibiotics. Pain noted to be controlled. She has no appetite, but despite this, we will add regular diet for her. - Admit to inpatient. - IV antibiotics zosyn 3.375 G IV q 6 hours. - Urine culture pending. - Adjust to PO antibiotics once the C/S returns. - Patient refused labs this am. - CBC/CMP ordered - Q shift vitals - Fluids rate of 100ml/hour while not tolerating PO. Saline lock when tolerating PO. Leukocytosis: Await C/S from urine and target antibiotics to appropriate treatment. Tachycardia: Suspected pain response. She reports pain is stable. Will monitor. BP is stable, remainder of vitals stable. NO c/o palpitations, chest pain. DVT Prophy: Lovenox 40mg subcut. GI Prophy: None indicated. Diet: Regular. Disposition: Suspect 24-48 hour length of stay. IV antibiotics to start. Initial concern for sepsis. Monitor vitals, monitor output, monitor overall I+O. Labs in am tomorrow. We will recheck patient. 70 minutes spent on admission today. Reviewed imaging report and images directly, reviewed labs. I, discussed case 1:1 with ED provider. Discussed case with nursing. Patient interviewed in room 111. Patient evaluated for a second time 10 minutes at 12:15 and then another 5 minuts evaluation at 5pm prior to end of day.
[2020-06-09] MEDS ORDERED: LOVENOX SUBCUT SCH (08:00)
[2020-06-09] MEDS: LOVENOX SUBCUT SCH (08:00)
[2020-06-10 05:33] VITALS: BP 105/67; TEMP 98
[2020-06-10] MEDS: ZOSYN 3.375 GM 3.375 GM in SODIUM CHLORIDE 50 ML IV SCH (05:38)
[2020-06-10] MEDS: EMLA CREAM TP ONE (06:56)
--- NOTE | 2020-06-10 07:50 | PCM.DC ---
Final Diagnosis: 1. Acute pyelonephritis w/ Flank Pain 2. E. Coli Carrasco Sensitive Urine Culture Positive 3. Leukocytosis. 4. Tachycardia (1) Acute pyelonephritis: Status: Acute Code(s): N10 - Acute pyelonephritis SNOMED Code(s): 67080606 (2) SIRS (systemic inflammatory response syndrome): Status: Acute Code(s): R65.10 - Systemic inflammatory response syndrome (SIRS) of non-infectious origin without acute organ dysfunction SNOMED Code(s): 693583329 (3) Tachycardia: Status: Acute Code(s): R00.0 - Tachycardia, unspecified SNOMED Code(s): 9463925 (4) Leukocytosis: Status: Acute Code(s): D72.829 - Elevated white blood cell count, unspecified SNOMED Code(s): 726590310 Reason for Hospitalization: 1. Flank Pain, fever, dysuria with CT findings consistent for Pyelonephritis. Prognosis at Discharge: Good, medically optimized for d/c home. Pain free, Culture + for E. Coli Carrasco Sensitive. Tolerating PO. Doing much better. Condition at Discharge: Stable, pain free, Culture + for E. Coli Carrasco Sensitive. Tolerating PO. Doing much better. Medications at Discharge: Ambulatory Orders Medication Instructions Recorded acetaminophen [Tylenol Extra 500 mg PO TID #21 tab 06/10/20 Strength] ibuprofen 600 mg PO Q8H PRN #21 tab 06/10/20 sulfamethoxazole-trimethoprim 1 tab PO BID 7 Days #14 tab 06/10/20 [Bactrim DS] Lab/Diagnostics: Laboratory Results WBC 13.62 K/ul (4.6-10.2) H 06/08/20 18:30 RBC 3.95 10^6/ul (4.20-5.40) L 06/08/20 18:30 Hgb 12.1 g/dl (12.0-16.0) 06/08/20 18:30 Hct 36.6 % (37.0-47.0) L 06/08/20 18:30 MCV 92.7 fl (81.0-99.0) 06/08/20 18:30 MCH 30.6 pg (27.0-31.0) 06/08/20 18:30 MCHC 33.1 (31.8-35.4) 06/08/20 18:30 RDW Coeff of Laetha 12.1 % (11.6-14.8) 06/08/20 18:30 Plt Count 235 10^3/uL (140-440) 06/08/20 18:30 Immature Gran % (Auto) 0.3 % (0.0-5.0) 06/08/20 18:30 Neut % (Auto) 78.7 % (42.2-75.2) H 06/08/20 18:30 Lymph % (Auto) 9.8 (10.0-50.0) L 06/08/20 18:30 Quay % (Auto) 10.9 (0-10) H 06/08/20 18:30 Eos % (Auto) 0.2 % (0.0-7.0) 06/08/20 18:30 Baso % (Auto) 0.1 % (0.0-3.0) 06/08/20 18:30 Neut # (Auto) 10.7 K/ul (2.0-6.9) H 06/08/20 18:30 Lymph # (Auto) 1.3 K/uL (0.60-3.4) 06/08/20 18:30 Quay # (Auto) 1.5 K/uL (0.4-2.0) 06/08/20 18:30 Eos # (Auto) 0.0 K/ul (0.0-0.7) 06/08/20 18:30 Baso # (Auto) 0.0 K/uL (0-0.2) 06/08/20 18:30 Immature Gran # (Auto) 0.0 (0.0-1.0) 06/08/20 18:30 Sodium 132.7 mmol/L (134.5-145) L 06/08/20 18:30 Potassium 3.81 mmol/L (3.5-5.1) 06/08/20 18:30 Chloride 102.5 mmol/L (98-107) 06/08/20 18:30 Carbon Dioxide 25.3 mmol/L (22-30.0) 06/08/20 18:30 Anion Gap 8.71 06/08/20 18:30 BUN 6.5 mg/dL (7-17) L 06/08/20 18:30 Creatinine 0.53 mg/dL (0.60-1.30) L 06/08/20 18:30 Estimated GFR (MDRD) 143.00 mL/min 06/08/20 18:30 BUN/Creatinine Ratio 12.26 06/08/20 18:30 Glucose 102.4 mg/dL (74-106) 06/08/20 18:30 Lactic Acid < 0.50 mmol/L (0.7-2.1) L 06/08/20 18:30 Calcium 8.85 mg/dL (8.4-10.2) 06/08/20 18:30 Total Bilirubin 0.32 mg/dL (0.2-1.3) 06/08/20 18:30 AST 77.5 U/L (14-36) H 06/08/20 18:30 ALT 66.1 U/L (0-35) H 06/08/20 18:30 Alkaline Phosphatase 84.9 U/L (38-126) 06/08/20 18:30 Total Protein 6.75 g/dL (6.3-8.2) 06/08/20 18:30 Albumin 3.31 g/dL (3.5-5.0) L 06/08/20 18:30 Globulin 3.44 06/08/20 18:30 Albumin/Globulin Ratio 0.96 06/08/20 18:30 Procalcitonin 0.07 ng/mL (0.09) 06/08/20 18:30 Urine Color Yellow (YELLOW) 06/08/20 16:45 Urine Clarity Clear (CLEAR) 06/08/20 16:45 Urine pH 6.0 (5-9) 06/08/20 16:45 Ur Specific [place] 1.025 (1.005-1.030) 06/08/20 16:45 Urine Protein 1+ (NEGATIVE) H 06/08/20 16:45 Urine Glucose (UA) Negative (NEGATIVE) 06/08/20 16:45 Urine Ketones Trace (NEGATIVE) H 06/08/20 16:45 Urine Blood 1+ (NEGATIVE) H 06/08/20 16:45 Urine Nitrite Positive (NEGATIVE) H 06/08/20 16:45 Urine Bilirubin Negative (NEGATIVE) 06/08/20 16:45 Urine Urobilinogen 1.0 (0.2) H 06/08/20 16:45 Ur Leukocyte Esterase Trace (NEGATIVE) H 06/08/20 16:45 Urine Microscopic RBC 5-10 (0-2) 06/08/20 16:45 Urine Microscopic WBC 30-50 (0-2) 06/08/20 16:45 Ur Squamous Epith Cells 2-5 (0-5) 06/08/20 16:45 Urine Bacteria 4+ (NOT PRESENT) 06/08/20 16:45 Urine Test Negative (NEGATIVE) 06/08/20 16:45 CT Abd/Pelvis W/O Contrast. : IMPRESSION: 1. Questionable left perinephric edema can be seen in the setting of pyelonephritis. Recommend correlation with white blood cell count and urinalysis. 2. No nephrolithiasis, urolithiasis, or ureteral pelvicaliectasis. 3. Trace free pelvic fluid. CXR Negative for acute process. Education Provided to Patient and Family: 1. Pyelo 2. Bactrim DS 3. R/B/A to meds d/w patient, SE reviewed, handout offered regarding medications listed. R/B/A specifically for abx and for Yeast infection 4. R/B/A to tylenol/motrin. Acetaminophen. Follow package insert. Discussed risks/benefits of acetaminophen. Do not take more than 2000 mg Tylenol per day. Discussed recent changes by FDA for risks of IN. Caution advised with combination medications. Watch for excess Tylenol (acetaminophen) and is present in numerous over the counter combination medications. Also be aware of ingredients as these can be duplicated in combination medications if taking various types together. If questions check with pharmacist or call. For NSAIDS follow package insert. NSAIDs work by blocking natural substances that cause inflammation. Discussed risks benefits of Ibuprofen/Aleve/Diclofenac/Mobic for pain. Reviewed recent FDA changes regarding increased risks for IN. The patient is aware of risks. GI Prophylaxis discussed in relation to use of steroids and or NSAIDS. Discussed NSAIDS may rarely increase risk for IN/stroke, which may be greater if heart disease is present, tobacco use or diabetic for example. Rx may increase risks of GI bleed, platelet dysfunction that can occur at any time. May increase risks of kidney damag e/disease. Should not use before or after CABG or major surgery without direction. Side effects can include dizziness, drowsiness, HOLLIDAY upset stomach to name a few. If any severe symptoms develop please call or f/u in clinic. Follow-ups: 1. CHING Landers 06/15/20 1300. Discharge Disposition: Home Hospital Course: 25 yo CF patient of CHING Landers presented to ED 06/08/20 at [address] Guzman. CC reviewed and noted fever, chills, left flank pain since day prior. Patient met sepsis criteria in ED, SIRS criteria met. Vitals on arrival at 1542 showed temp 101.9, HR 122, RR 16, BP 125/79 and pulse ox 95. She had left flank pain, worsening with time, pain was constant, of moderate severity, no radition, reported fever, chills, flank pain as in Chief complaint. No history of similar episode previously, noted CVA tenderness, suprapubic tenderness. DDX considered through ED included pyelonephritis, ascending UTI, ureteral calculus. ROS reviewed and similar to HPI. Exam reviewed ill appearing, moderate pain distress, tenderness left flank, otherwise WNL. Labs showed WBC 13.62, hgb 12.1, HCT 36.6, plt 235. Sodium mildly decreased at 132.7 on CMP. K+ normal at 3.81. CL 102.5 normal, CO2 25.3 BUN 6.5, Cr 0.53, glucose 102.4. Differential showed 79.7 Neutrophils, 10.9% monocytes. Neut # 10.7 elevated. Urine showed yellow color , pH 6.0, SG 1.025, 1+ prot and blood, nitrite positive, Trace LE, RBC 5-10, WBC 30-50, squams 2-5, bacteria 4+. test negative. Lactic acid was negative, procalcitonin negative, decreasing likelihood of septis/septic shock risks. Albumin mildly low at 3.31, AST mildly elevated 77.5, alt mildly elevated 66.1. Urine was sent for culture, no allergies to foods/medications, She was given tylenol, zosyn started while patient was in ED 3.375gram q 6 hours. Chest Xray completd showed no acute disease/process. CT scan of abdomen and pelvis showed Questionable left perinephric edema can be seen in the setting of pyelonephritis. Recommend correlation with white blood cell count and urinalysis. No nephrolithiasis, urolithiasis, or ureteral pelvicaliectasis. Trace free pelvic fluid. She was admitted to room 111 initially under ED but transfered to my care as inpatient due to acute pyelonephirits. This am she was seen by at 7:30 am. Vitals this am 117/72, Pulse 112, RR 16, temp 98.6, O2 98% on RA. Patient was seen by me on am of 06/09/20 and H+P completed. Patient refused am labs 06/09. She was on Zosyn 3.375G q 6 hours while culture was pending. pain controlled with tylenol and motrin. She was urinating well, stooling well. We monitored her throughout the day and no changes 06/09/20. Am of 06/10/20 I checked on patient at 0700. Urine culture reported Gram - Rods but no C+S were available. Vitals normal/stable 105/67, 87 hr, 16 rr, 98Temp, 96% on RA. Good Uout and relatively balanced I+O status. Nursing notes reviewed, talked with overnight/am nursing and case management. Discussed care with patient. I contacted lab and spoke with Iris in microbiology and found her C+S showed E. Coli and carrasco sensitive to all abx. We will change the zosyn IV to Bactrim DS PO BID and complete 7 days of oral abx. Medications were arranged, electronically sent to her pharmacy in [facility]. I also sent tylenol/motrin. R/B/A to meds d/w patient. We discussed her overall care. She had declined labs again am of 06/10/20 and I cannot assess renal status or leukocytosis status. With improvement, afebrile status, pain reduction, C+S with known abx that works via PO, patient tolerating PO food/liquds, I recommend d/c home. She has had maximal improvement from this hospital stay and is ready for d/c home. >30 minutes spent on discharge 06/10/20, not including documentation. Day of D/C Exam: Vital Signs - 24 hr 06/09/20 21:51 06/10/20 05:31 Temperature 99.3 F 98.0 F Pulse Rate 116 H 87 Respiratory Rate 14 16 Blood Pressure 114/73 105/67 O2 Sat by Pulse Oximetry 100 96 Constitutional: Appearance-Mild pain response. Awake upon entry into room 111. Consistent with stated age. Orientation- Oriented x 3, alert Build and Nutrition-[normal female] General- Patient is pleasant and cooperative with the interview and exam. Integumentary: General-No rashes, ulcers or lesions. Palpation- Normal skin moisture/turgor. Skin is warm to touch, appropriate. Capillary refill is normal bilateral Upper and lower extremity. ENMT: Hearing Assessment-normal to conversational speech. Nose and sinus- No sinus tenderness along frontal/maxillary region. External appearance normal and midline. Nares- bilateral quiet airflow, no discharge. Nasal mucosa- No bleeding noted and no ulcerations observed. [place]ck, moist. Turbinates non boggy. Lips- normal color, moist without cracks/lesions Oral Cavity/Palate- hard/soft palate intact without lesions, oral mucosa pink and moist. discussed appropriate oral care. Tongue normal midline. Oropharynx- no pharyngeal erythema, Uvula midline. No post nasal drip. No exudate. Salivary glands- Non tender to palpation CHEST/LUNG: Inspection- symmetric chest wall no pectus deformity. Normal effort, no distress, no use of accessory muscles. Palpation- nontender sternum, ribline. No abnormal pulsations. Auscultation- Breath sounds normal throughout all lung he[place]. Normal tracheal sounds, Normal bronchial sounds overlying sternum, Bronchovessicular sounds normal between scapulae posteriorly, Normal vessicular breath sounds heard throughout periphery. Lungs are clear today. Adventitious sounds- No wheezes, rales, rhonchi. CARDIOVASCULAR: Carotid artery- normal, no bruits or abnormal pulsations. Jugular vein- no pulsations. Palpation/Percussion- Normal PMI, no palpable thrill Auscultation- Regular rate and rhythm. No murmur noted in sitting, supine positions. Extremities- no digital clubbing, cyanosis, edema, increased warmth. ABDOMEN: Inspection- normal and no visible pulsations. Normal contour. Auscultation- Bowel sounds normal, no abdominal bruits. Palpation/Percussion- soft, non-tender, no rebound tenderness, no rigidity (guarding), no jar tenderness, no masses. Liver-no hepatomegaly, Spleen no splenomegaly, Hernias- none. Rectal not examined. : Suprapubic tenderness resolved. Minimal CVA + on left, Back pain: No spinous process tenderness along C/T/L spine. Paraspinal tenderness present bilaterally along thoracic and lumbar region. Hip flexion 5/5 bilat, knee extension 5/5 bilat, knee flexion 5/5 bilat. Ankle dorsiflexion and plantar flexion 5/5 bilaterally. Hallux strength normal symmetrical, no atrophy. No ankle clonus. Normal reflexes, symmetrical. no foot drop. Normal sensation to light touch bilaterally. Peripheral Vascular: Lower extremity- Normal temperature with pink nailbeds and no ulcerations. DP pulses 2+ bilaterally. Pedal hair intact. Normal capillary refill. Edema- No edema. Musculoskeletal: Generalized-No generalized swelling or edema of extremities, no digital clubbing or cyanosis, neurovascularly intact all four extremities. Neurological: General- Moves all 4 extremities symmetrically. Symmetrical face and body posture. Cranial nerves- individually evaluated II-XII and intact. PERRLA, Normal EOMI, visual/special senses appear intact, Face is symmetrical and normal sensation/movement, normal tongue, normal strength/posture of neck musculature. Neuropsych: Oriented- Person, place, time. (AAOx3), Mood/affect- normal and congruent. Able to articulate well. Speech-Normal speech, normal rate, normal tone, normal use of language, volume and coherence. Thought content- normal with ability to perform basic computations and apply abstract thought/reason. Associations- intact, no SI/HI, no hallucinations, delusions, obsessions. Judgment/insight- Appropriate. Memory-Recall intact, remote and recent memory intact. Knowledge- Age appropriate fund of knowledge, concentration and attention span normal. Plan: 1. D/C Home today 2. Bactrim DS 1 PO BID x 7 days #14. RX escribed to pharmacy. 3. Ibuprofen 600mg 1 po TID x 7 days #21 Rx escribed to pharmacy 4. Tylenol 500 1 PO TID x 7 days #21 rx escribed to pharmacy. >30 minutes spent with patient today. Discussed case [facility] nursing, case management, contacted lab directly to get C+S. DIscussed with patient am labs, reviewed overnight nursing notes. D/C today stable condition/improved.
[2020-06-10] MEDS: SODIUM CHLORIDE 1,000 ML IV SCH (10:01)
[2020-06-10] MEDS: LOVENOX SUBCUT SCH (10:04)
== END 2020-06-10 10:17 | disposition home or self-care (01) | DRG 690 ==
LOC: ED 15:42 → MEDSURG A 20:15
PROVIDERS: ADMIT Emergency Medicine; ATTEND Family Medicine
DX: F17.210 Nicotine dependence, cigarettes, uncomplicated; D72.829 Elevated white blood cell count, unspecified; N10 Acute pyelonephritis; R00.0 Tachycardia, unspecified; B96.20 Unspecified Escherichia coli [E. coli] as the cause of diseases classified elsewhere